=== PATIENT | female | born 1980 | race Caucasian/White ===

== ENCOUNTER 2017-09-01 08:31 | Emergency (ER) | payer OTHER ==
[~2017-09-01] VITALS: Ht 160 cm; Wt 84.0 kg
[2017-09-01 08:42] VITALS: BP 140/91; PULSE 104; RESP 16; TEMP 98.1; O2SAT 99
[2017-09-01 09:02] VITALS: BP 123/88; PULSE 103; RESP 21; O2SAT 93
[2017-09-01] MEDS ORDERED: SODIUM CHLOR 0.9% 1000 ML INJ 1,000 ML IV SCH (09:09)
[2017-09-01] MEDS ORDERED: ONDANSETRON HCL 4 MG/2 ML VIAL IVP ONE (09:15)
[2017-09-01] MEDS ORDERED: HYDROmorphone HCL PF 1 MG/ML VIAL IVS ONE (09:15)
[2017-09-01] MEDS ORDERED: SODIUM CHLORIDE 0.9% FLUSH 10 ML FLUSH IV FLUSH PRN (09:15)
--- NOTE | 2017-09-01 09:24 | PD ---
HPI Chief Complaint: Abdominal Pain Time Seen by Provider: 09:09 Travel History International Travel<30 days: No Contact w/Intl Traveler<30days: No Traveled to known affect area: No History of Present Illness HPI 37-year-old female patient with history of recent diagnosis of left ovarian cancer, she is status post hysterectomy, presents to the ER today because of worsening in left pelvic pains which she has had in the past as well. She states that it comes and goes but tonight it was worse, after her wedding. She states that she has been lifting nieces and nephews during the wedding and she thinks may have done too much. It hurts more with movements. Pain is waxing and waning in nature and she has been having some nausea and vomiting as well. She denies any fevers, diarrhea, or other symptoms. She has also noted some small amount of vaginal bleeding. Modifying Factors: None Associated Signs & Symptoms: Left pelvic pains Risk Factors: Ovarian cancer diagnosis, do for oophorectomy on September 12 [facility] Past Medical History ?: Not : 3 Para: 2 Miscarriage: 1 Ovarian Cysts: Yes Past Surgical History Gynecologic Surgery: Yes (HYSTER, UTERUS AND TUBES REMOVED ) Hysterectomy: Yes Social History Alcohol Use: Yes ([facility]) Tobacco Use: No Substance Use: No Allergies-Medications (Allergen,Severity, Reaction): Coded Allergies: No Known Allergies (Verified Allergy, Unknown, 09/01/17) Reported Meds & Prescriptions Reported Meds & Active Scripts Active No Active Prescriptions or Reported Medications Review of Systems Except as stated in HPI: all other systems reviewed are Neg Physical Exam Narrative GENERAL: Well-developed young white female patient currently mild distress. Awake and oriented 3. SKIN: Focused skin assessment warm/dry. HEAD: Atraumatic. Normocephalic. EYES: Pupils equal and round. No scleral icterus. No injection or drainage. ENT: No nasal bleeding or discharge. Mucous membranes pink and moist. NECK: Trachea midline. No JVD. CARDIOVASCULAR: Regular rate and rhythm. No murmur appreciated. RESPIRATORY: No accessory muscle use. Clear to auscultation. Breath sounds equal bilaterally. GASTROINTESTINAL: Abdomen soft, mild left pelvic tenderness without guarding or rebound, nondistended. Hepatic and splenic margins not palpable. MUSCULOSKELETAL: No obvious deformities. No clubbing. No cyanosis. No edema. NEUROLOGICAL: Awake and alert. No obvious cranial nerve deficits. Motor grossly within normal limits. Normal speech. PSYCHIATRIC: Appropriate mood and affect; insight and judgment normal. Data Data Last Documented VS Vital Signs Date Time Temp Pulse Resp B/P (MAP) Pulse Ox O2 Delivery O2 Flow Rate FiO2 09/01/17 09:34 94 Room Air 09/01/17 09:02 103 21 09/01/17 08:42 98.1 Orders Orders Complete Blood Count With Diff (09/01/17 09:09) Comprehensive Metabolic Panel (09/01/17 09:09) Lipase (09/01/17 09:09) Urinalysis - C+S If Indicated (09/01/17 09:09) Iv Access Insert/Monitor (09/01/17 09:09) Ecg Monitoring (09/01/17 09:09) Oximetry (09/01/17 09:09) Ondansetron Inj (Zofran Inj) (09/01/17 09:15) Sodium Chlor 0.9% 1000 Ml Inj (Ns 1000 M (09/01/17 09:09) Sodium Chloride 0.9% Flush (Ns Flush) (09/01/17 09:15) Hydromorphone Pf Inj (Dilaudid Pf Inj) (09/01/17 09:15) Us Pelvis Comp W Transvaginal (09/01/17 ) Ct Abd/Pel W Iv Contrast(Rout) (09/01/17 10:46) Hydromorphone Pf Inj (Dilaudid Pf Inj) (09/01/17 11:00) Iohexol 350 Inj (Omnipaque 350 Inj) (09/01/17 11:17) Labs Laboratory Tests Test 09/01/17 09:15 09/01/17 11:45 White Blood Count 10.8 TH/MM3 Red Blood Count 4.90 MIL/MM3 Hemoglobin 14.8 GM/DL Hematocrit 42.9 % Mean Corpuscular Volume 87.4 FL Mean Corpuscular Hemoglobin 30.1 PG Mean Corpuscular Hemoglobin Concent 34.5 % Red Cell Distribution Width 13.6 % Platelet Count 371 TH/MM3 Mean Platelet Volume 8.1 FL Neutrophils (%) (Auto) 69.9 % Lymphocytes (%) (Auto) 21.0 % Monocytes (%) (Auto) 8.0 % Eosinophils (%) (Auto) 0.6 % Basophils (%) (Auto) 0.5 % Neutrophils # (Auto) 7.6 TH/MM3 Lymphocytes # (Auto) 2.3 TH/MM3 Monocytes # (Auto) 0.9 TH/MM3 Eosinophils # (Auto) 0.1 TH/MM3 Basophils # (Auto) 0.1 TH/MM3 CBC Comment DIFF FINAL Differential Comment Blood Urea Nitrogen 8 MG/DL Creatinine 0.73 MG/DL Random Glucose 95 MG/DL Total Protein 8.6 GM/DL Albumin 4.2 GM/DL Calcium Level 9.2 MG/DL Alkaline Phosphatase 79 U/L Aspartate Amino Transf (AST/SGOT) 23 U/L Alanine Aminotransferase (ALT/SGPT) 25 U/L Total Bilirubin 0.8 MG/DL Sodium Level 137 MEQ/L Potassium Level 4.1 MEQ/L Chloride Level 105 MEQ/L Carbon Dioxide Level 25.3 MEQ/L Anion Gap 7 MEQ/L Estimat Glomerular Filtration Rate 91 ML/MIN Lipase 89 U/L Urine Color YELLOW Urine Turbidity CLEAR Urine pH 7.0 Urine Specific [place] GREATER THAN 1.050 Urine Protein 30 mg/dL Urine Glucose (UA) NEG mg/dL Urine Ketones NEG mg/dL Urine Occult Blood NEG Urine Nitrite NEG Urine Bilirubin NEG Urine Urobilinogen LESS THAN 2.0 MG/DL Urine Leukocyte Esterase NEG Urine RBC 6 /hpf Urine WBC LESS THAN 1 /hpf Urine Squamous Epithelial Cells 4 /hpf Urine Bacteria RARE /hpf Urine Mucus FEW /lpf Microscopic Urinalysis Comment CULT NOT INDICATED MDM Medical Decision Making Medical Screen Exam Complete: Yes Emergency Medical Condition: Yes Medical Record Reviewed: Yes Interpretation(s) Laboratory Tests Test 09/01/17 09:15 09/01/17 11:45 Total Protein 8.6 GM/DL (6.4-8.2) Urine Specific [place] GREATER THAN 1.050 Urine Protein 30 mg/dL (NEG-TRACE) Urine RBC 6 /hpf (0-3) Urine Bacteria RARE /hpf (NONE) Urine Mucus FEW /lpf (OCC) Last 24 hours Impressions Abdomen/Pelvis CT 09/01/17 1046 Signed Impressions: Service Date/Time: Friday, September 01, 2017 11:07 - CONCLUSION: 1. No enlarged pelvic mass is seen. Patient is status post hysterectomy. There are bilateral adnexal masses likely related to normal-sized ovaries. 2. Mild hepatic steatosis. Carlton Tena MD Pelvis Ultrasound 09/01/17 0000 Signed Impressions: Service Date/Time: Friday, September 01, 2017 09:42 - CONCLUSION: No pelvic mass is seen. The patient is status post hysterectomy. Carlton Tena MD Differential Diagnosis Left pelvic pains: Acute on chronic pains versus ovarian cyst versus ovarian torsion Narrative Course Pelvic has been deferred secondary to patient request. I have talked to the patient about the fact that would not be a little to fully diagnose any BODY CLEANER trauma. Patient states understanding. She states that the ultrasound was uncomfortable and she does not want any more evaluation in that area. She states that she did not have intercourse last night after the wedding because of significant pain. Ultrasounds did not show any signs of obvious acute BODY CLEANER processes but was not able to spot the ovaries. CAT scan was done and did spot both ovaries but did not spot any unusual injuries or any other acute processes. Patient had been given IV fluids, pain medications in the ER. On reevaluation at 12 PM she is feeling more comfortable. At this point, plan would be to release the patient with follow-up to [facility]. Return for any worsening in pain or new symptoms as needed. The plan has been discussed with her and she states understanding. Diagnosis Primary Impression: Chronic pelvic pain in female Additional Impression: Ovarian cancer Med/Other Pt SpecificInfo: Prescription(s) given Scripts Ondansetron Odt (Zofran Odt) 4 Mg Tab 4 MG SL Q6HR Y for Nausea/Vomiting, #7 TAB 0 Refills Prov: Jose Garrison MD 09/01/17 Tramadol (Tramadol) 50 Mg Tab 50 MG PO Q6H Y for PAIN, #10 TAB 0 Refills Prov: Jose Garrison MD 09/01/17 Disposition: DISCHARGE HOME Condition: Stable Jose Garrison MD Sep 01, 2017 09:24
[2017-09-01 09:34] VITALS: O2SAT 94
[2017-09-01 09:43] LABS: AUTOMATED NEUTROPHIL # 7.6 TH/MM3 (1.8-7.7); BASOPHIL # 0.1 TH/MM3 (0-0.2); BASOPHIL % 0.5 % (0.0-2.0); EOSINOPHIL # 0.1 TH/MM3 (0-0.4); EOSINOPHIL % 0.6 % (0.0-4.0); HEMATOCRIT 42.9 % (35.0-46.0); HEMO FLAGS DIFF FINAL; LYMPHOCYTE # 2.3 TH/MM3 (1.0-4.8); MEAN CELL VOLUME 87.4 FL (80.0-100.0); MEAN CORPUSCULAR HEMOGLOBIN 30.1 PG (27.0-34.0); MEAN CORPUSCULAR HGB CONC 34.5 % (32.0-36.0); NEUT % 69.9 % (16.0-70.0); PLATELET COUNT 371 TH/MM3 (150-450); RED CELL DISTRIBUTION WIDTH 13.6 % (11.6-17.2); WHITE BLOOD COUNT 10.8 TH/MM3 (4.0-11.0)
[2017-09-01 09:57] LABS: ALT (GPT) 25 U/L (10-53)
[2017-09-01 09:59] LABS: ALKALINE PHOSPHATASE 79 U/L (45-117); TOTAL BILIRUBIN ADULT 0.8 MG/DL (0.2-1.0)
[2017-09-01 10:17] LABS: ANION GAP 7 MEQ/L (5-15); AST (GOT) 23 U/L (15-37); BICARBONATE 25.3 MEQ/L (21.0-32.0); BLOOD UREA NITROGEN 8 MG/DL (7-18); CHLORIDE 105 MEQ/L (98-107); GLOMERULAR FILTRATION RATE 91 ML/MIN (>89); SODIUM (NA) 137 MEQ/L (136-145)
[2017-09-01 10:20] LABS: POTASSIUM 4.1 MEQ/L (3.5-5.1)
--- NOTE | 2017-09-01 10:37 | RADRPT ---
EXAM DATE/TIME: 09/01/2017 09:42 [facility] COMPARISON: No previous studies available for comparison. INDICATIONS : Pelvic pain. MEDICAL HISTORY : Ovarian cysts. Ovarian cancer. Pelvic pain. SURGICAL HISTORY : Hysterectomy. ENCOUNTER: Initial ACUITY: 3 days PAIN SCORE: 8/10 LOCATION: Bilateral pelvis MEASUREMENTS: UTERUS: SURGICALLY ABSENT RIGHT OVARY: NOT VISUALIZED LEFT OVARY: NOT VISUALIZED FINDINGS: UTERUS: The patient is status post hysterectomy. RIGHT OVARY: The right ovary is not seen. LEFT OVARY: The left ovary is not seen. MISCELLANEOUS: No free fluid. CONCLUSION: No pelvic mass is seen. The patient is status post hysterectomy. Carlton Tena MD on September 01, 2017 at 10:34 Board Certified Radiologist. This report was verified electronically.
[2017-09-01] MEDS ORDERED: HYDROmorphone HCL PF 1 MG/ML VIAL IV PUSH ONE (11:00)
[2017-09-01] MEDS ORDERED: IOHEXOL 350 MG/ML 10 ML VIAL (for RAD DIAG) IVCONTRAST ONE (11:17)
--- NOTE | 2017-09-01 11:33 | RADRPT ---
EXAM DATE/TIME: 09/01/2017 11:07 [facility] COMPARISON: No previous studies available for comparison. INDICATIONS : Left lower quadrant pain. Ovarian cancer. IV CONTRAST: 94 cc Omnipaque 350 (iohexol) IV ORAL CONTRAST: No oral contrast ingested. RADIATION DOSE: 11.56 CTDIvol (mGy) MEDICAL HISTORY : Carcinoma, ovarian. SURGICAL HISTORY : Hysterectomy. ENCOUNTER: Initial ACUITY: 2 days PAIN SCALE: 7/10 LOCATION: Left lower quadrant TECHNIQUE: Volumetric scanning of the abdomen and pelvis was performed. Using automated exposure control and ad justment of the mA and/or kV according to patient size, radiation dose was kept as low as reasonably achievable to obtain optimal diagnostic quality images. DICOM format image data is available electro nically for review and comparison. FINDINGS: LOWER LUNGS: The visualized lower lungs are clear. LIVER: There is mild diffuse decreased density at the liver without lesion. There is no dilation of the shun iary tree. No calcified gallstones. SPLEEN: Normal size without lesion. PANCREAS: Within normal limits. KIDNEYS: Normal in size and shape. There is no mass, stone or hydronephrosis. ADRENAL GLANDS: Within normal limits. VASCULAR: There is no aortic aneurysm. BOWEL/MESENTERY: The stomach, small bowel, and colon demonstrate no acute abnormality. There is no free intraperitone al air or fluid. There is a 2.6 cm duodenal diverticulum. ABDOMINAL WALL: Within normal limits. RETROPERITONEUM: There is no lymphadenopathy. BLADDER: No wall thickening or mass. REPRODUCTIVE: The patient is status post hysterectomy. There is a 2.4 x 1.9 x 2.6 cm right adnexal mass and a 2.6 x 1.6 x 2.2 cm left adnexal mass. These likely represent normal-sized ovaries. INGUINAL: There is no lymphadenopathy or hernia. MUSCULOSKELETAL: Within normal limits for patient age. CONCLUSION: 1. No enlarged pelvic mass is seen. Patient is status post hysterectomy. There are bilateral adnexal masses likely related to normal-sized ovaries. 2. Mild hepatic steatosis. Carlton Tena MD on September 01, 2017 at 11:26 Board Certified Radiologist. This report was verified electronically.
[2017-09-01 12:06] LABS: BACTERIA, URINE RARE /hpf; BLOOD, URINE NEG (NEG); COMMENT (UR) CULT NOT INDICATED; CULTURE IF INDICATED CULT NOT INDICATED; GLUCOSE,URINE NEG (NEG); KETONE, URINE NEG (NEG); MUCUS URINE FEW /lpf (OCC); NITRITE,URINE NEG (NEG); SQUAMOUS EPITHELIAL CELL URINE 4 /hpf (0-5); URINE COLOR YELLOW (YELLW/STRAW)
[2017-09-01] MEDS ORDERED: TRAM50TA PO (12:13)
[2017-09-01] MEDS ORDERED: ZOFR4TAB3 SL (12:13)
== END 2017-09-01 12:44 | disposition home or self-care (01) ==
LOC: NEPE 08:31
DX: R10.2 Pelvic and perineal pain (principal); G89.29 Other chronic pain; K76.0 Fatty (change of) liver, not elsewhere classified; C56.2 Malignant neoplasm of left ovary; N93.9 Abnormal uterine and vaginal bleeding, unspecified; Z90.710 Acquired absence of both cervix and uterus
CPT/HCPCS: 74177; 76830; 76856; 80053; 81001; 83690; 85025; 96374; 96375; 96376; 99285; J1170; J2405; J7030; Q9967